=== PATIENT | female | born 1945 | race Caucasian/White ===

== ENCOUNTER 2018-03-11 14:28 | Outpatient (CLI) | payer MEDICARE ==
--- NOTE | 2018-03-11 15:53 | RAD ---
LEFT LEG TWO VIEWS: INDICATIONS: New onset pain. FINDINGS: There is no fracture, dislocation, or other significant osseous abnormality of the left leg. IMPRESSION: No acute osseous abnormality. POS: [facility]
== END 2018-03-11 14:29 | disposition home or self-care (01) ==
LOC: SCSRAD 14:28
PROVIDERS: ATTEND Family Medicine
DX: I80.9 Phlebitis and thrombophlebitis of unspecified site (principal); M79.662 Pain in left lower leg
CPT/HCPCS: 36415; 85379

== ENCOUNTER 2018-03-12 13:49 | Outpatient (CLI) | payer MEDICARE ==
--- NOTE | 2018-03-12 15:47 | ULT ---
LEFT LOWER EXTREMITY VENOUS DUPLEX EXAM: Date: 03/12/18 HISTORY: Left leg pain, which is worsened last week. Elevated D-Dimer. FINDINGS: Real-time color Doppler evaluation of the left lower extremity was performed from groin to calf. This includes evaluation of the common femoral, superficial and profunda femoral, saphenous, popliteal, a nd posterior tibial veins. This shows patent deep venous system with normal compressibility and augme ntation. IMPRESSION: No evidence of deep venous thrombosis of the left lower extremity. POS: [facility]
== END 2018-03-12 13:50 | disposition home or self-care (01) ==
LOC: SCSULT 13:49
PROVIDERS: ATTEND Family Medicine
DX: I82.402 Acute embolism and thrombosis of unspecified deep veins of left lower extremity (principal)